=== PATIENT | female | born 1950 | race Two or more races ===

== ENCOUNTER 2025-03-15 08:00 | Outpatient (CLI) | payer OTHER ==
[~2025-03-15] VITALS: Ht 149.9 cm; Wt 44.5 kg
[2025-03-15] MEDS ORDERED: NORVASC5 MG PO (13:36)
[2025-03-15] MEDS ORDERED: ATACAND32 MG PO (13:36)
[2025-03-15] MEDS ORDERED: MULTIPLE VITAM1 EAC2 PO (13:37)
[2025-03-15] MEDS ORDERED: LATANOPROST2.5 ML OP (13:37)
[2025-03-15 13:38] VITALS: BP 150/82
== END 2025-03-15 08:01 | disposition home or self-care (01) ==
LOC: RAD 08:00 → ADM 10:15 → RAD 03-16 08:00 → CIR.AMB 03-21 07:00 → EDSTATUS 03-21 10:15
PROVIDERS: ATTEND Obstetrics & Gynecology Gynecology
DX: N81.11 Cystocele, midline (principal); Z01.812 Encounter for preprocedural laboratory examination; Z01.818 Encounter for other preprocedural examination; R07.89 Other chest pain; Z01.810 Encounter for preprocedural cardiovascular examination; I10 Essential (primary) hypertension; D64.9 Anemia, unspecified; D03.9 Melanoma in situ, unspecified; D68.9 Coagulation defect, unspecified; R07.9 Chest pain, unspecified; N39.0 Urinary tract infection, site not specified